=== PATIENT | male | born 2000 | race Caucasian/White ===

== ENCOUNTER 2018-08-14 13:01 | Emergency (ER) | payer BC, OTHER ==
[2018-08-14] MEDS ORDERED: IBUPROFEN 600 MG TAB PO ONE (13:24)
--- NOTE | 2018-08-14 13:28 | EDPHY ---
H & P Time Seen by Provider: 08/14/18 13:12 HPI/ROS: CHIEF COMPLAINT: Finger lacerations HISTORY OF PRESENT ILLNESS: 18-year-old male opening a new knife that he had received from [employer] when he lacerated his left thumb and index finger. No other injuries. Occurred shortly before presentation. Otherwise well. Tetanus is up-to-date. REVIEW OF SYSTEMS: A comprehensive 10 system review of systems was reviewed and is otherwise negative aside from elements mentioned in the history of present illness. PAST MEDICAL HISTORY: Patient denies. Does take Wellbutrin for mild depression. No anticoagulants or aspirin. SOCIAL HISTORY: [employer] student. GENERAL APPEARANCE: Pleasant, alert, conversant. No acute distress. FOCUSED EXAM OF left hand: Left thumb: 1 cm superficial laceration over the distal pad. Bleeding is well controlled. Two-point sensation intact distally. Brisk capillary refill. Left index finger: 2 cm laceration across the radial aspect of the middle phalanx. Brisk bleeding. Normal extension and flexion at MCP, PIP, DIP joint. Two-point sensation intact distally. Brisk capillary refill. Neurovascular exam: Good capillary refill, normal motor exam, normal neurologic exam. Smoking Status: Never smoked Constitutional: Initial Vital Signs Temperature (C) 36.8 C 08/14/18 13:06 Heart Rate 73 08/14/18 13:06 Respiratory Rate 16 08/14/18 13:06 Blood Pressure 132/90 H 08/14/18 13:06 O2 Sat (%) 94 08/14/18 13:06 O2 Delivery Mode Room Air Allergies/Adverse Reactions: No Known Allergies Allergy (Verified 08/14/18 13:05) Home Medications: Medication Instructions Recorded Adderall 10 MG (*) 08/09/16 Wellbutrin 100mg (*) 08/14/18 MDM/Departure - MDM Procedures: Local anesthetic instilled into the thumb laceration. 1% bupivacaine without epinephrine. Digital block instilled into the left index finger. 1% bupivacaine without epinephrine. Procedure: Laceration repair. The 1 cm flap laceration on the distal thumb was anesthetized using bupivacaine The wound was cleaned and irrigated per nursing and tech documentation. Laceration was then draped and explored. There were no deep structures involved. No tendon injury was identified. The wound was repaired with 5-0 Ethilon, simple interrupted, #3. The wound repair was simple. The procedure was performed by myself. Patient is aware the laceration will have a scar. Procedure: Laceration repair. The 2 cm laceration on the radial aspect of the index finger was anesthetized using bupivacaine digital block The wound was cleaned and irrigated per nursing and tech documentation. Laceration was then draped and explored. There were no deep structures involved. No tendon injury was identified. The wound was repaired with 5-0 simple interrupted, #4. The wound repair was simple. The procedure was performed by myself. Patient is aware the laceration will have a scar. Medications Given: Discontinued Medications Ibuprofen (Motrin) 600 mg PO EDNOW ONE Stop: 08/14/18 13:25 Last Admin: 08/14/18 13:26 Dose: 600 mg Differential Diagnosis: Differential diagnosis for the patient's injury was considered including but not limited to contusion, abrasion, laceration, fracture, open fracture, or dislocation. - Depart Disposition: Home, Routine, Self-Care Clinical Impression: Laceration Condition: Good Instructions: Finger Laceration (ED) Additional Instructions: Keep wound clean and dry. Clean suture line with a mixture of hydrogen peroxide and water. Apply a thin layer of antibiotic cream. Dress wound if desired. Suture removal in 7-10 days. Watch for signs of infection. No soaking wound in water. Showers are ok. No swimming until sutures are removed. Use ibuprofen or Tylenol as directed for pain. Return to emergency department if any concerns regarding infection. Referrals: NONE *PRIMARY CARE P,. [Primary Care Provider] - As per Instructions
[2018-08-14 14:15] VITALS: BP 145/71
== END 2018-08-14 14:25 | disposition home or self-care (01) ==
PROC: 0HQGXZZ Repair Left Hand Skin, External Approach (ICD-10-PCS; principal; 2018-08-14)
PROC: 0HQGXZZ Repair Left Hand Skin, External Approach (ICD-10-PCS; 2018-08-14)
DX: S61.012A Laceration without foreign body of left thumb without damage to nail, initial encounter (principal); S61.211A Laceration without foreign body of left index finger without damage to nail, initial encounter; W26.0XXA Contact with knife, initial encounter; Y99.8 Other external cause status